=== PATIENT | male | born 1975 | race Caucasian/White ===

== ENCOUNTER 2022-02-21 06:31 | Emergency (ER) | payer OTHER ==
[2022-02-21 06:49] LABS: HEMOGLOBIN 16.7 gm/dl (14.0-17.5); RED BLOOD COUNT 5.17 M/UL (4.20-5.50); WHITE BLOOD COUNT 10.5 K/UL (4.5-11.0)
[2022-02-21 07:21] LABS: BUN/CREATININE RATIO 11 (0-10)
[2022-02-21] MEDS ORDERED: VAZALORE81 MG PO (10:26)
== END 2022-02-21 10:38 | disposition home or self-care (01) ==
LOC: ER1 06:31
PROVIDERS: Physician Assistant
DX: R07.2 Precordial pain (principal); E11.65 Type 2 diabetes mellitus with hyperglycemia; M54.50 Low back pain, unspecified; Z79.4 Long term (current) use of insulin; Z88.0 Allergy status to penicillin; Z88.8 Allergy status to other drugs, medicaments and biological substances
CPT/HCPCS: 71045; 80053; 82550; 82553; 84484; 85025; 93005; 99285